=== PATIENT | female | born 1990 | race American Indian/Alaskan Native ===

== ENCOUNTER 2021-03-03 09:04 | Emergency (ER) | payer MEDICAID ==
[2021-03-03] MEDS ORDERED: HYDROcodone/ACETAMINOPHEN 7.5-325MG TAB PO ONE (10:03)
--- NOTE | 2021-03-03 10:09 | Emergency Department Report ---
[place] [facility] Chief Complaint: Skin/Abscess/Foreign Body Stated Complaint: BUMP ON LFT HAND Time Seen by Provider: 03/03/21 09:29 Duration: 4 Days Location: Upper Extremities Rash Symptoms: Yes Blistering, No Fever, No Lightheaded, No Malaise, No Myalgias Severity: severe Other History: 30-year-old -Indian female presents to the emergency room for blister or abscess to her left middle finger for 4 days. Patient states she has been dealing with a severe rash for the over 4 months and has been on prednisone cream as well as prednisone pills. States that she has been taking ibuprofen it helps a little but the pain is intense. Patient states that she has been several emergency room for her rash. States that she has been rul ed out for syphilis. States she has an appointment on April 19 with urology surgeon. ED Review of Systems ROS: Stated complaint: BUMP ON LFT HAND Other details as noted in HPI ED Past Medical Hx - Past Medical History Previous Medical History?: No - Surgical History Past Surgical History?: No - Medications Home Medications: Home Medications Medication Instructions Recorded Confirmed Last Taken Type Amoxicillin/K Clav Tab [Augmentin 1 tab PO Q12HR 10 Days #14 tab 03/03/21 Unknown Rx 875 mg] Rash Exam - Exam General: Vital signs noted. No distress. Alert and acting appropriately. HEENT: No Periorbital Edema, No Conjuctival Injection, No Chemosis, No Perioral Edema, No Tongue Edema, No Uvular Edema, No Compromised Airway, No Drooling Lungs: Yes Good Air Exchange Heart: Yes Regular, No Murmur Skin: Yes Erythema, Yes Edema, No Urticarial Rash, No Maculopapular Rash, No Excoriations Other: Positive: Abdomen Normal, Neurologic Normal, Musculoskeletal Normal ED Course Vital Signs 03/03/21 09:21 Temperature 98.9 F Pulse Rate 86 Respiratory 16 Rate Blood Pressure 145/69 [Left] O2 Sat by Pulse 97 Oximetry ED Medical Decision Making - Medical Decision Making 30-year-old -Indian female presents to the emergency room for blister or abscess to her left middle finger for 4 days. Patient states she has been dealing with a severe rash for the over 4 months and has been on prednisone cream as well as prednisone pills. States that she has been taking ibuprofen it helps a little but the pain is intense. Patient states that she has been several emergency room for her rash. States that she has been ruled out for syphilis. States she has an appointment on April 19 with urology surgeon. Rash on bilateral hands we will treat for cellulitis of the left middle finger Augmentin 875 p.o. twice daily and referral to a urology surgeon. Patient can t jorge ibuprofen or Tylenol for pain management. Critical care attestation.: If time is entered above; I have spent that time in minutes in the direct care of this critically ill patient, excluding procedure time. ED Disposition Clinical Impression: Cellulitis and abscess of finger, unspecified Disposition: HOME / SELF CARE / HOMELESS Is pt being admited?: No Does the pt Need Aspirin: No Condition: Stable Instructions: Cellulitis, Adult, [id number] Additional Instructions: Complete antibiotics as prescribed pain medication as needed follow-up with dermatology. Prescriptions: Amoxicillin/K Clav Tab [Augmentin 875 mg] 1 tab PO Q12HR 10 Days #14 tab Referrals: [facility] [Provider Group] - 3-5 Days LEONARDA GARCIA MD [Referring] - 3-5 Days Forms: Work/School Release Form(ED) Time of Disposition: 10:09
[2021-03-03 10:23] VITALS: BP 174/75
== END 2021-03-03 10:23 | disposition home or self-care (01) ==
LOC: ED 09:04
DX: L02.512 Cutaneous abscess of left hand (principal); L03.012 Cellulitis of left finger; Z79.899 Other long term (current) drug therapy
CPT/HCPCS: 99282